=== PATIENT | male | born 1950 | race Caucasian/White ===

== ENCOUNTER 2017-08-25 10:26 | Inpatient (IN) | payer MEDICARE, BC ==
[~2017-08-25 10:26] MED LIST: Bisacodyl 5 MG Tab PO PRN; Cyclobenzaprine 10 MG Tab PO PRN; Ketorolac 15 MG/ML SDV IVPUSH PRN; Lactated Ringers 1,000 ML IV SCH; Lidocaine 1%/Sod Bicarbonate in NS 8.4% 1 ML Syringe IV PRN; Magnesium Hydroxide 400 MG/5 ML Susp 30 ML Cup PO PRN; Morphine 2 MG/ML Syringe IVPUSH PRN; Naloxone 0.4 MG/ML SDV IVPUSH PRN; Ondansetron 4 MG/2 ML SDV IVPUSH PRN; Sennosides 8.6 MG Tab PO PRN; Sodium Chloride 0.9% 10 ML Syringe FLUSH PRN; diphenhydrAMINE 50 MG/ML SDV IVPUSH PRN
[2017-08-25] MEDS ORDERED: ceFAZolin 1 GM Vial ONE ×2 (11:23→11:32)
[2017-08-25] MEDS ORDERED: Iodine/Sodium Iodide 2% Tincture 30 ML Bottle ONE (11:23)
[2017-08-25] MEDS ORDERED: Bupivacaine 0.25% 10 ML SDV ONE (11:23)
[2017-08-25] MEDS ORDERED: Vancomycin 1 GM SDV ONE (11:23)
[2017-08-25] MEDS ORDERED: fentaNYL 100 MCG/2 ML SDV ONE (11:32)
[2017-08-25] MEDS ORDERED: Propofol 200 MG/20 ML SDV ONE ×3 (11:32→13:48)
[2017-08-25] MEDS ORDERED: Midazolam 1 MG/ML 2 ML SDV ONE (11:32)
--- NOTE | 2017-08-25 11:45 | PCM.PREANE ---
Preanesthetic Assessment - Anesthesia/Transfusion/Family Hx Anesthesia History: Prior Anesthesia Without Reaction Family History of Anesthesia Reaction: No Transfusion History: No Prior Transfusion(s) - Review of Systems General: No Symptoms Pulmonary: No Symptoms Cardiovascular: No Symptoms (HTN) Gastrointestinal: No Symptoms Neurological: Other (chronic low back pain) Other: Reports: Diabetes (DM 2, hemoglobin A1C, took acetaminophen 1500 mg this am) - Physical Assessment NPO Status Date: 08/24/17 NPO Status Time: 22:00 Pulse: 77 O2 Sat by Pulse Oximetry: 94 Respiratory Rate: 16 Blood Pressure: 155/100 Vital Signs: Last Vital Signs Temp 36.9 C 08/25/17 10:45 Pulse 77 08/25/17 10:45 Resp 16 08/25/17 10:45 BP 155/100 H 08/25/17 10:45 Pulse Ox 94 L 08/25/17 10:45 Height: 1.8 m Weight: 100.244 kg ASA Class: 2 Mental Status: Alert & Oriented x3 Airway Class: Mallampati = 2 Dentition: Reports: Normal Dentition, Broken Tooth/Teeth (right upper tooth) Thyro-Mental Finger Breadths: 3 Mouth Opening Finger Breadths: 3 ROM/Head Extension: Full Lungs: Clear to Auscultation, Normal Respiratory Effort Cardiovascular: Regular Rate, Regular Rhythm - Lab Values: Laboratory Last Values APTT 27 SECONDS (22-36) 08/14/17 08:15 POC Glucose 147 mg/dL (80-115) H 08/25/17 10:57 MRSA (PCR) Negative 08/06/17 15:39 - Allergies Allergies/Adverse Reactions: Allergies Allergy/AdvReac Type Severity Reaction Status Date / Time No Known Allergies Allergy Verified 08/22/17 09:45 - Blood Blood Available: No Product(s) Available: None - Anesthesia Plan Pre-Op Medication Ordered: None - Acknowledgements Anesthesia Type Planned: Spinal Pt an Appropriate Candidate for the Planned Anesthesia: Yes Alternatives and Risks of Anesthesia Discussed w Pt/Guardian: Yes Pt/Guardian Understands and Agrees with Anesthesia Plan: Yes PreAnesthesia Questionnaire HEENT History: Reports: None Cardiovascular History: Reports: High Cholesterol, Hypertension Respiratory History: Reports: None Gastrointestinal History: Reports: None Genitourinary History: Reports: BPH Other Genitourinary History: Hypertrophy of the prostate Musculoskeletal History: Reports: Gout, Osteoarthritis Neurological History: Reports: None Psychiatric History: Reports: None Endocrine/Metabolic History: Reports: Diabetes, Type II Hematologic History: Reports: None Immunologic History: Reports: None Oncologic (Cancer) History: Reports: None Dermatologic History: Reports: None - Infectious Disease History Infectious Disease History: Reports: None - Past Surgical History Head Surgeries/Procedures: Reports: None HEENT Surgical History: Reports: None Cardiovascular Surgical History: Reports: None Respiratory Surgical History: Reports: None GI Surgical History: Reports: None Male Surgical History: Reports: None Endocrine Surgical History: Reports: None Neurological Surgical History: Reports: None Other Musculoskeletal Surgeries/Procedures:: Right total hip replacement Oncologic Surgical History: Reports: None Dermatological Surgical History: Reports: None - SUBSTANCE USE Smoking Status *Q: Former Smoker Tobacco Use Within Last Twelve Months: No Second Hand Smoke Exposure: No Recreational Drug Use History: No - HOME MEDS Home Medications: Home Meds Allopurinol 100 mg PO DAILY 07/07/15 [History] Brimonidine Tartrate 1 drop EYEBOTH TID 07/07/15 [History] Flaxseed [Flaxseed Oil] 3 tab PO DAILY 07/07/15 [History] Gluc HCl/Csa/Nkechi Hy/Hyalur Ac [Glucosamine Chondroitin] 3 cap PO DAILY [History] Lisinopril 5 mg PO DAILY 07/07/15 [History] Pravastatin [Pravachol] 20 mg PO DAILY 07/07/15 [History] Ubidecarenone [Coq-10] 300 mg PO DAILY 07/07/15 [History] Acetaminophen/oxyCODONE [Percocet 325-5 MG] 1 tab PO QID PRN 08/22/17 [History] Aspirin [Halfprin] 81 mg PO DAILY 08/22/17 [History] Calcium Carbonate 500 mg PO TID 08/22/17 [History] Fish Oil/[place]-3 Fatty Acids [Fish Oil] 1,000 mg PO BID 08/22/17 [History] Ibuprofen [Advil] 200 mg PO BID 08/22/17 [History] sitaGLIPtin Phos/Metformin HCl [Janumet 50-1,000 MG] 1 tab PO BID 08/22/17 [ History] traMADol HCl [Ultram] 50 mg PO QID PRN 08/22/17 [History] - CURRENT (IN HOUSE) MEDS Current Meds: Current Medications Aspirin (Ecotrin) 325 mg PO BID KAREEM Bisacodyl (Dulcolax) 5 mg PO DAILY PRN PRN Reason: Constipation Morphine Sulfate 8 mg/Epinephrine HCl 0.3 mg/Cefuroxime Sodium 750 mg/Ketorolac Tromethamine 30 mg/Sodium Chloride 27.9 ml 0 mg .XX ONETIME ONE Stop: 08/25/17 12:46 Cyclobenzaprine HCl (Flexeril) 10 mg PO TID PRN PRN Reason: Spasms Diphenhydramine HCl (Benadryl) 25 mg IVPUSH Q4H PRN PRN Reason: Nausea Docusate Sodium (Colace) 100 mg PO BID KAREEM Famotidine (Pepcid) 20 mg PO Q12H [facility] Lactated Ringer's (Ringers, Lactated) 1,000 mls @ 125 mls/hr IV ASDIRECTED [facility] Cefazolin Sodium/Dextrose 2 gm (/ Premix) 50 mls @ 100 mls/hr IV Q8H [facility] Stop: 08/26/17 11:59 Ketorolac Tromethamine (Toradol) 15 mg IVPUSH Q6H PRN PRN Reason: Pain Lidocaine/Sodium Bicarbonate (Buffered Lidocaine 1% In Ns 8.4%) 0.25 ml IV ONETIME PRN PRN Reason: Prior to IV Start Stop: 08/25/17 18:00 Magnesium Hydroxide (Milk Of Magnesia) 30 ml PO BID PRN PRN Reason: Constipation Morphine Sulfate (Morphine) 2 mg IVPUSH Q2H PRN PRN Reason: Breakthrough Pain Naloxone HCl (Narcan) 0.1 mg IVPUSH Q5M PRN PRN Reason: Oversedation Ondansetron HCl (Zofran) 4 mg IVPUSH Q6H PRN PRN Reason: Nausea/Vomiting Oxycodone/Acetaminophen (Percocet 325-5 Mg) 1 - 2 tab PO Q4H PRN PRN Reason: Pain Senna (Senna) 8.6 mg PO BID PRN PRN Reason: Constipation Sodium Chloride (Saline Flush) 10 ml FLUSH ASDIRECTED PRN PRN Reason: Keep Vein Open Stop: 08/25/17 23:30 Discontinued Medications Bupivacaine HCl (Sensorcaine-Mpf 0.25%) Confirm Administered Dose 30 ml .ROUTE .STK-MED ONE Stop: 08/25/17 11:24 Cefazolin Sodium (Ancef) Confirm Administered Dose 2 gm .ROUTE .STK-MED ONE Stop: 08/25/17 11:24 Cefazolin Sodium (Ancef) Confirm Administered Dose 2 gm .ROUTE .STK-MED ONE Stop: 08/25/17 11:33 Fentanyl (Sublimaze) Confirm Administered Dose 100 mcg .ROUTE .STK-MED ONE Stop: 08/25/17 11:33 Iodine (Iodine 2% Mild Tincture) Confirm Administered Dose 30 ml .ROUTE .STK- MED ONE Stop: 08/25/17 11:24 Midazolam HCl (Versed 1 Mg/Ml) Confirm Administered Dose 2 mg .ROUTE .STK-MED ONE Stop: 08/25/17 11:33 Propofol (Diprivan 20 Ml) Confirm Administered Dose 600 mg .ROUTE .STK-MED ONE Stop: 08/25/17 11:33 Tranexamic Acid (Cyklokapron) Confirm Administered Dose 1,000 mg .ROUTE .STK- MED ONE Stop: 08/25/17 11:24 Vancomycin HCl (Vancomycin) Confirm Administered Dose 1 gm .ROUTE .STK-MED ONE Stop: 08/25/17 11:24
[2017-08-25] MEDS ORDERED: Morphine PF 1 MG/ML Amp ONE (12:02)
[2017-08-25] MEDS ORDERED: diphenhydrAMINE 50 MG/ML SDV IVPUSH PRN (13:06)
[2017-08-25] MEDS ORDERED: HYDROmorphone 0.5 MG/0.5 ML Syringe IVPUSH PRN (13:06)
[2017-08-25] MEDS ORDERED: Ondansetron 4 MG/2 ML SDV IVPUSH PRN (13:06)
[2017-08-25] MEDS ORDERED: fentaNYL 100 MCG/2 ML SDV IVPUSH PRN (13:06)
[2017-08-25] MEDS ORDERED: Lactated Ringers 1,000 ML ONE ×2 (13:26→14:30)
[2017-08-25] MEDS: Morphine 8 MG, EPINEPHrine 0.3 MG, Cefuroxime 750 MG, Ketorolac 30 MG, Sodium Chloride ... ONE ×10 (13:57→16:39)
--- NOTE | 2017-08-25 14:45 | PCM.POSTAN ---
POST ANESTHESIA ASSESSMENT - MENTAL STATUS Mental Status: Alert, Oriented - VITAL SIGNS Pulse Rate: 68 SaO2: 96 Resp Rate: 14 Blood Pressure: 129/77 Temperature: 36.0 C - RESPIRATORY Respiratory Status: Respiratory Rate WNL, Airway Patent, O2 Saturation Stable, Supplemental Oxygen - CARDIOVASCULAR CV Status: Pulse Rate WNL, Blood Pressure Stable - GASTROINTESTINAL GI Status: No Symptoms - PAIN Pain Score: 0 - POST OP HYDRATION Hydration Status: Adequate & Stable
--- NOTE | 2017-08-25 15:19 | CR ---
Right knee: AP and lateral views of the right knee were obtained. Comparison: No prior knee exam. Knee prosthesis is seen. Components are aligned. Soft tissue air is noted from the surgical procedure. Impression: 1. Satisfactory radiographic appearance of recently placed right knee prosthesis. Diagnostic code #2
[2017-08-25] MEDS: ceFAZolin 2 GM in Premix Bag 1 BAG IV SCH (18:34)
--- NOTE | 2017-08-25 19:18 | PCM.CONS ---
H&P History of Present Illness - General Date of Service: 08/25/17 Admit Problem/Dx: Admission Diagnosis/Problem Admission Diagnosis/Problem Osteoarthritis of knee Source of Information: Patient, Old Records History Limitations: Reports: No Limitations - History of Present Illness Initial Comments - Free Text/Narative: Gabe is a 67-year-old male status post total knee arthroplasty this morning with Dr. Stanton. He is doing well thus far. Minimal complaints of pain. No nausea. Fishman catheter is draining clear yellow urine. He is status post total hip arthroplasty 1 year ago, he did have difficulty with voiding after Fishman catheter was removed at that time. He does have history of BPH. He has no concerns or complaints this evening. Past medical history type 2 diabetes controlled on oral medications. Hypertension, hyperlipidemia, BPH, gout, low back pain, osteoarthritis, status post total hip arthroplasty 1 year ago--did very well with that. Hospitalist service is consulted for postoperative medical management. Patient is full CODE STATUS Right Knee Pain Score (Numeric/FACES): 6 - Related Data Allergies/Adverse Reactions: Allergies Allergy/AdvReac Type Severity Reaction Status Date / Time No Known Allergies Allergy Verified 08/22/17 09:45 Home Medications: Home Meds Allopurinol 100 mg PO DAILY 07/07/15 [History] Brimonidine Tartrate 1 drop EYEBOTH TID 07/07/15 [History] Flaxseed [Flaxseed Oil] 3 tab PO DAILY 07/07/15 [History] Gluc HCl/Csa/Nkechi Hy/Hyalur Ac [Glucosamine Chondroitin] 3 cap PO DAILY [History] Lisinopril 5 mg PO DAILY 07/07/15 [History] Pravastatin [Pravachol] 20 mg PO DAILY 07/07/15 [History] Ubidecarenone [Coq-10] 300 mg PO DAILY 07/07/15 [History] Acetaminophen/oxyCODONE [Percocet 325-5 MG] 1 tab PO QID PRN 08/22/17 [History] Aspirin [Halfprin] 81 mg PO DAILY 08/22/17 [History] Calcium Carbonate 500 mg PO TID 08/22/17 [History] Fish Oil/[place]-3 Fatty Acids [Fish Oil] 1,000 mg PO BID 08/22/17 [History] Ibuprofen [Advil] 200 mg PO BID 08/22/17 [History] sitaGLIPtin Phos/Metformin HCl [Janumet 50-1,000 MG] 1 tab PO BID 08/22/17 [ History] traMADol HCl [Ultram] 50 mg PO QID PRN 08/22/17 [History] Past Medical History HEENT History: Reports: Cataract, Glaucoma, Other (See Below) Other HEENT History: wears glasses, bilateral cataracts Cardiovascular History: Reports: High Cholesterol, Hypertension Respiratory History: Reports: None Gastrointestinal History: Reports: None Genitourinary History: Reports: BPH Other Genitourinary History: Hypertrophy of the prostate Musculoskeletal History: Reports: Gout, Osteoarthritis Neurological History: Reports: None Psychiatric History: Reports: None Endocrine/Metabolic History: Reports: Diabetes, Type II Hematologic History: Reports: None Immunologic History: Reports: None Oncologic (Cancer) History: Reports: None Dermatologic History: Reports: None - Infectious Disease History Infectious Disease History: Reports: Mumps - Past Surgical History Head Surgeries/Procedures: Reports: None HEENT Surgical History: Reports: Cataract Surgery Cardiovascular Surgical History: Reports: None Respiratory Surgical History: Reports: None GI Surgical History: Reports: None Male Surgical History: Reports: None Endocrine Surgical History: Reports: None Neurological Surgical History: Reports: None Other Musculoskeletal Surgeries/Procedures:: Right total hip replacement Oncologic Surgical History: Reports: None Dermatological Surgical History: Reports: None Social & Family History - Family History Oncologic: Reports: Other (See Below) Other Oncologic Family History: stomach - Tobacco Use Smoking Status *Q: Former Smoker Used Tobacco, but Quit: Yes Month Tobacco Last Used: 1981 Second Hand Smoke Exposure: No - Caffeine Use Caffeine Use: Reports: Coffee, Soda - Recreational Drug Use Recreational Drug Use: No Drug Use in Last 12 Months: No H&P Review of Systems - Review of Systems: Review Of Systems: See Below General: Reports: No Symptoms HEENT: Reports: No Symptoms Pulmonary: Reports: No Symptoms Cardiovascular: Reports: No Symptoms Gastrointestinal: Reports: No Symptoms Genitourinary: Reports: No Symptoms, Other (fishman cath draining clear yellow urine) Musculoskeletal: Reports: Leg Pain (Minimal complaints of knee pain this evening ) Psychiatric: Reports: No Symptoms Neurological: Reports: No Symptoms Exam - Exam Exam: See Below - Vital Signs Vital Signs: Last Vital Signs Temp 97.5 F 08/25/17 15:15 Pulse 74 08/25/17 18:02 Resp 16 08/25/17 15:51 BP 152/78 H 08/25/17 18:02 Pulse Ox 97 08/25/17 18:53 Weight: 227 lb 3.2 oz - Exam Quality Assessment: Urinary Catheter, DVT Prophylaxis General: Alert, Oriented, Cooperative HEENT: Conjunctiva Clear, Hearing Intact, Pupils Equal, PERRLA Neck: Supple Lungs: Clear to Auscultation, Normal Respiratory Effort Cardiovascular: Regular Rate, Regular Rhythm GI/Abdominal Exam: Normal Bowel Sounds, Soft, Non-Tender (Male) Exam: Deferred Rectal (Males) Exam: Deferred Extremities: Other Peripheral Pulses: 2+: Dorsalis Pedis (L), Dorsalis Pedis (R) Neurological: Cranial Nerves Intact Neuro Extensive - Mental Status: Alert, Oriented x3, Normal Mood/Affect, Normal Cognition, Memory Intact Psychiatric: Alert, Normal Affect, Normal Mood - Patient Data Lab Results Last 24 hrs: Laboratory Results - last 24 hr 08/25/17 08/25/17 Range/Units 10:57 17:10 POC Glucose 147 H 155 H (80-115) mg/dL Consult PN Assessment/Plan POD#: 0 Procedures: Procedures GAIT TRAINING THERAPY (08/02/15) MR-STAPH DNA AMP PROBE (07/04/15) NEEDLE LOCALIZATION BY XRAY (09/28/14) PT EVALUATION (08/02/15) THERAPEUTIC EXERCISES (09/05/15) (1) S/P total knee arthroplasty SNOMED Code(s): 3999693135322, 3674221291900 Code(s): Z96.659 - PRESENCE OF UNSPECIFIED ARTIFICIAL KNEE JOINT Priority: High Current Visit: Yes Qualifiers: Laterality: right Qualified Code(s): Z96.651 - Presence of right artificial knee joint (2) Osteoarthritis SNOMED Code(s): 256515515 Code(s): M19.90 - UNSPECIFIED OSTEOARTHRITIS, UNSPECIFIED SITE Priority: High Current Visit: Yes Qualifiers: Osteoarthritis location: knee Osteoarthritis type: primary Laterality: right Qualified Code(s): M17.11 - Unilateral primary osteoarthritis, right knee (3) BPH (benign prostatic hyperplasia) SNOMED Code(s): 142784678 Code(s): N40.0 - BENIGN PROSTATIC HYPERPLASIA WITHOUT LOWER URINRY TRACT SYMP Priority: Medium Current Visit: Yes Qualifiers: Lower urinary tract symptom presence: unspecified whether lower urinary tract symptoms present Qualified Code(s): N40.0 - Benign prostatic hyperplasia without lower urinary tract symptoms (4) Hyperlipidemia SNOMED Code(s): 59196294 Code(s): E78.5 - HYPERLIPIDEMIA, UNSPECIFIED Priority: Medium Current Visit: No Qualifiers: Hyperlipidemia type: unspecified Qualified Code(s): E78.5 - Hyperlipidemia , unspecified (5) Diabetes mellitus type 2 in nonobese SNOMED Code(s): 952714627 Code(s): E11.9 - TYPE 2 DIABETES MELLITUS WITHOUT COMPLICATIONS Priority: Medium Current Visit: Yes (6) GERD (gastroesophageal reflux disease) SNOMED Code(s): 278228065 Code(s): K21.9 - GASTRO-ESOPHAGEAL REFLUX DISEASE WITHOUT ESOPHAGITIS Priority: Medium Current Visit: No Qualifiers: Esophagitis presence: esophagitis presence not specified Qualified Code(s) : K21.9 - Gastro-esophageal reflux disease without esophagitis (7) Hypertension SNOMED Code(s): 88386727 Code(s): I10 - ESSENTIAL (PRIMARY) HYPERTENSION Priority: Medium Current Visit: No Qualifiers: Hypertension type: unspecified Qualified Code(s): I10 - Essential (primary ) hypertension Problem List Initiated/Reviewed/Updated: Yes My Orders Last 24 Hours: My Active Orders 08/25/17 19:12 Blood Glucose Check, Bedside [RC] WITHMEALSANDBED 08/25/17 21:00 Tamsulosin [Flomax] 0.4 mg PO BIDPC 08/25/17 22:00 Insulin Aspart [NovoLOG] See Protocol SUBCUT QIDACANDBED 08/26/17 Breakfast [employer] Diet [DIET] Plan: I/P: S/P total right knee arthroplasty, POD # 0, Dr. Sharp - Pain management and DVT prophylax - PT/OT - RT/IS - Hgb, will follow a.m. labs - Vital signs stable currently, we'll continue to follow, monitor oxygen saturations with supplemental O2 if needed for saturations less than 90% Chronic conditions: Continue home meds Hypertension Hyperlipidemia Type 2 diabetes, Accu-Cheks before meals and at bedtime, NovoLog sliding scale if needed, diabetic diet BPH with urinary retention after total hip arthroplasty 1 year ago, add Flomax twice a day Gout Chronic low back pain Other: GI Prophylax CM/SW for DC planning Patient is full Code status. Requesting Provider: Romy Date Consult Requested: 08/25/17 Reason for Consult: Postoperative medical management Patient History Reviewed: Yes Admission H&P Reviewed: Yes Time Spent (in minutes): 40
[2017-08-25] MEDS: Tamsulosin 0.4 MG Cap.ER PO SCH (21:15)
[2017-08-25] MEDS: Famotidine 20 MG Tab PO SCH (21:15)
[2017-08-25] MEDS: Docusate Sodium 100 MG Cap PO SCH (21:15)
[2017-08-25] MEDS: Insulin Aspart 100 Units/ML 3 ML Pen SUBCUT SCH (23:00)
[2017-08-25] MEDS: Acetaminophen/oxyCODONE 325-5 MG Tab PO PRN (23:34)
[2017-08-26] MEDS ORDERED: Temazepam 15 MG Cap PO PRN (01:38)
[2017-08-26] MEDS: Acetaminophen/oxyCODONE 325-5 MG Tab PO PRN ×2 (03:24→14:21)
[2017-08-26] MEDS ORDERED: Scopolamine 1.5 MG Transdermal Patch ONE (08:04)
[2017-08-26] MEDS ORDERED: Aspirin 325 MG Tab.EC PO SCH (09:00)
[2017-08-26] MEDS: Insulin Aspart 100 Units/ML 3 ML Pen SUBCUT SCH ×2 (12:12→12:20)
[2017-08-26] MEDS: ceFAZolin 2 GM in Premix Bag 1 BAG IV SCH ×2 (12:12→12:19)
[2017-08-26] MEDS: Tamsulosin 0.4 MG Cap.ER PO SCH (12:13)
[2017-08-26] MEDS: Docusate Sodium 100 MG Cap PO SCH (12:13)
[2017-08-26] MEDS: Famotidine 20 MG Tab PO SCH (12:14)
--- NOTE | 2017-08-26 12:18 | PN ---
DATE OF SERVICE: 08/26/2017 Consult/Progress Note CHIEF COMPLAINT: Status post right total knee arthroplasty with Dr. Stanton. SUBJECTIVE: Mr. Duran is seen this morning. He does have complaints of right knee pain. He feels that his thigh is firm and very tender. He did not sleep much at all last night as he was restless and having pain. He was medicated for pain, which helps. He is mildly nauseous. He did vomit x1 yesterday afternoon and had Zofran. He denies complaints of shortness of breath, chest pain, palpitations, abdominal or back pain. He is voiding x2 after Wesley catheter removal without difficulty. OBJECTIVE: VITAL SIGNS: Temperature 97.9, pulse 81, and blood pressure 135/75. He is on 2 L nasal cannula at this time. HEENT: Unremarkable. HEART: Regular rate and rhythm. No murmurs, rubs, or gallops. LUNGS: Clear to auscultation. ABDOMEN: Soft, nontender. Bowel sounds present. EXTREMITIES: Right leg is with some amount of firmness to the thigh, there is no ecchymosis noted. It is tender with palpation to the lateral thigh. Edinson wrap is loosened. Dressing is examined; clean, dry, and intact. The knee itself is with minimal amount of swelling, no firmness about the knee or posterior knee. Calf is nontender and without swelling or firmness. Distally, pedal pulses are 2+ and equal bilaterally. He has normal sensation to the toes. He is flexing and extending the ankle without difficulty or pain to the knee. NEURO: Alert and oriented x3. IMPRESSION: 1. Status post right total knee arthroplasty, postop day #1. 2. Mild postoperative nausea. 3. Hypertension, under good control at this time. PLAN: Edinson wrap was loosened slightly. Reviewed with the patient that I do not think there is bleeding into the thigh as he is hemodynamically stable, no dizziness, asymptomatic. I believe this may have been the Edinson wrap was too tight for him and he is having normal postoperative swelling. Scopolamine patch is ordered and will be placed for nausea. He has been up and ambulatory 3 times in the night. Encouraged him to continue to ambulate, continue to do ankle pumps and squeeze the quad muscle while lying in bed. We will see how he does later this morning and plan for discharge today per Orthopedics. Medically, he is stable from a hospitalist standpoint and okay for discharge today. FRANCESCO /[id number]
[2017-08-26 15:48] VITALS: BP 152/62
--- NOTE | 2017-08-26 16:38 | PCM48HPAN ---
Post Anesthesia Note - EVALUATION WITHIN 48HRS OF ANESTHETIC Vital Signs in Normal Range: Yes Patient Participated in Evaluation: Yes Respiratory Function Stable: Yes Airway Patent: Yes Cardiovascular Function Stable: Yes Hydration Status Stable: Yes Pain Control Satisfactory: Yes Nausea and Vomiting Control Satisfactory: Yes Mental Status Recovered: Yes
--- NOTE | 2017-08-27 10:47 | PCM.SURGPN ---
- General Info Date of Service: 08/26/17 POD#: 1 Functional Status: Reports: Pain Controlled, Tolerating Diet, Ambulating, Urinating, Incentive Spirometry - Review of Systems Musculoskeletal: Reports: Other (The pt has met inpatient therapy goals.) - Patient Data Vitals - Most Recent: Last Vital Signs Temp 98.4 F 08/26/17 12:20 Pulse 92 08/26/17 12:20 Resp 17 08/26/17 12:20 BP 152/62 H 08/26/17 12:20 Pulse Ox 92 L 08/26/17 12:20 Weight - Most Recent: 227 lb 3.2 oz Lab Results Last 24 Hrs: Laboratory Results - last 24 hr 08/26/17 08/26/17 08/26/17 Range/Units 05:13 05:13 05:17 WBC 9.10 H (4.23-9.07) K/mm3 RBC 4.10 L (4.63-6.08) M/mm3 Hgb 11.8 L (13.7-17.5) gm/L Hct 35.3 L (40.1-51.0) % MCV 86.1 (79.0-92.2) fl MCH 28.8 (25.7-32.2) pg MCHC 33.4 (32.2-35.5) g/dl RDW Std Deviation 42.6 (35.1-43.9) fL Plt Count 179 (163-337) K/mm3 MPV 11.7 (9.4-12.3) fl Neut % (Auto) 75.8 H (34.0-67.9) % Lymph % (Auto) 10.4 L (21.8-53.1) % [place] % (Auto) 11.9 (5.3-12.2) % Eos % (Auto) 1.3 (0.8-7.0) Baso % (Auto) 0.3 (0.1-1.2) % Neut # (Auto) 6.89 H (1.78-5.38) K/mm3 Lymph # (Auto) 0.95 L (1.32-3.57) K/mm3 [place] # (Auto) 1.08 H (0.30-0.82) K/mm3 Eos # (Auto) 0.12 (0.04-0.54) K/mm3 Baso # (Auto) 0.03 (0.01-0.08) K/mm3 Sodium 136 (136-145) mEq/L Potassium 4.4 (3.5-5.1) mEq/L Chloride 98 (98-107) mEq/L Carbon Dioxide 30 (21-32) mEq/L Anion Gap 12.4 (5-15) BUN 17 (7-18) mg/dL Creatinine 0.8 (0.7-1.3) mg/dL Est Cr Clr Drug Dosing 98.05 mL/min Estimated GFR (MDRD) > 60 (>60) mL/min BUN/Creatinine Ratio 21.3 H (14-18) Glucose 223 H (80-115) mg/dL POC Glucose 259 H (80-115) mg/dL Calcium 8.6 (8.5-10.1) mg/dL Total Bilirubin 0.7 (0.2-1.0) mg/dL AST 18 (15-37) U/L ALT 33 (16-63) U/L Alkaline Phosphatase 44 L (46-116) U/L Total Protein 6.7 (6.4-8.2) g/dl Albumin 3.4 (3.4-5.0) g/dl Globulin 3.3 gm/dL Albumin/Globulin Ratio 1.0 (1-2) 08/26/17 Range/Units 11:34 WBC (4.23-9.07) K/mm3 RBC (4.63-6.08) M/mm3 Hgb (13.7-17.5) gm/L Hct (40.1-51.0) % MCV (79.0-92.2) fl MCH (25.7-32.2) pg MCHC (32.2-35.5) g/dl RDW Std Deviation (35.1-43.9) fL Plt Count (163-337) K/mm3 MPV (9.4-12.3) fl Neut % (Auto) (34.0-67.9) % Lymph % (Auto) (21.8-53.1) % [place] % (Auto) (5.3-12.2) % Eos % (Auto) (0.8-7.0) Baso % (Auto) (0.1-1.2) % Neut # (Auto) (1.78-5.38) K/mm3 Lymph # (Auto) (1.32-3.57) K/mm3 [place] # (Auto) (0.30-0.82) K/mm3 Eos # (Auto) (0.04-0.54) K/mm3 Baso # (Auto) (0.01-0.08) K/mm3 Sodium (136-145) mEq/L Potassium (3.5-5.1) mEq/L Chloride (98-107) mEq/L Carbon Dioxide (21-32) mEq/L Anion Gap (5-15) BUN (7-18) mg/dL Creatinine (0.7-1.3) mg/dL Est Cr Clr Drug Dosing mL/min Estimated GFR (MDRD) (>60) mL/min BUN/Creatinine Ratio (14-18) Glucose (80-115) mg/dL POC Glucose 308 H (80-115) mg/dL Calcium (8.5-10.1) mg/dL Total Bilirubin (0.2-1.0) mg/dL AST (15-37) U/L ALT (16-63) U/L Alkaline Phosphatase (46-116) U/L Total Protein (6.4-8.2) g/dl Albumin (3.4-5.0) g/dl Globulin gm/dL Albumin/Globulin Ratio (1-2) Med Orders - Current: Current Medications Discontinued Medications Aspirin (Ecotrin) 325 mg PO BID [facility] Last Admin: 08/26/17 12:13 Dose: Not Given Bisacodyl (Dulcolax) 5 mg PO DAILY PRN PRN Reason: Constipation Bupivacaine HCl (Sensorcaine-Mpf 0.25%) Confirm Administered Dose 30 ml .ROUTE .STK-MED ONE Stop: 08/25/17 11:24 Last Admin: 08/25/17 13:58 Dose: 30 ml Cefazolin Sodium (Ancef) Confirm Administered Dose 2 gm .ROUTE .STK-MED ONE Stop: 08/25/17 11:24 Last Admin: 08/25/17 13:53 Dose: 2 gm Cefazolin Sodium (Ancef) Confirm Administered Dose 2 gm .ROUTE .STK-MED ONE Stop: 08/25/17 11:33 Morphine Sulfate 8 mg/Epinephrine HCl 0.3 mg/Cefuroxime Sodium 750 mg/Ketorolac Tromethamine 30 mg/Sodium Chloride 27.9 ml 0 mg .XX ONETIME ONE Stop: 08/25/17 12:46 Last Admin: 08/25/17 16:39 Dose: Not Given Cyclobenzaprine HCl (Flexeril) 10 mg PO TID PRN PRN Reason: Spasms Last Admin: 08/26/17 03:25 Dose: 10 mg Diphenhydramine HCl (Benadryl) 25 mg IVPUSH Q4H PRN PRN Reason: Nausea Last Admin: 08/25/17 19:35 Dose: 25 mg Diphenhydramine HCl (Benadryl) 25 mg IVPUSH Q6H PRN PRN Reason: itching Stop: 08/25/17 15:30 Docusate Sodium (Colace) 100 mg PO BID [facility] Last Admin: 08/26/17 12:13 Dose: Not Given Famotidine (Pepcid) 20 mg PO Q12H [facility] Last Admin: 08/26/17 12:14 Dose: Not Given Fentanyl (Sublimaze) Confirm Administered Dose 100 mcg .ROUTE .STK-MED ONE Stop: 08/25/17 11:33 Fentanyl (Sublimaze) 50 mcg IVPUSH Q5M PRN PRN Reason: pain Stop: 08/25/17 15:30 Hydromorphone HCl (Dilaudid) 0.5 mg IVPUSH Q15M PRN PRN Reason: Pain (severe 7-10) Stop: 08/25/17 15:30 Lactated Ringer's (Ringers, Lactated) 1,000 mls @ 125 mls/hr IV ASDIRECTED [facility] Last Admin: 08/25/17 11:05 Dose: 125 mls/hr Cefazolin Sodium/Dextrose 2 gm (/ Premix) 50 mls @ 100 mls/hr IV Q8H [facility] Stop: 08/26/17 11:59 Last Admin: 08/26/17 12:19 Dose: 100 mls/hr Lactated Ringer's (Ringers, Lactated) Confirm Administered Dose 1,000 mls @ as directed .ROUTE .STK-MED ONE Stop: 08/25/17 13:27 Lactated Ringer's (Ringers, Lactated) Confirm Administered Dose 1,000 mls @ as directed .ROUTE .STK-MED ONE Stop: 08/25/17 14:31 Insulin Aspart (Novolog) 0 unit SUBCUT QIDACANDBED [facility] PRN Reason: Protocol Last Admin: 08/26/17 12:20 Dose: 4 units Iodine (Iodine 2% Mild Tincture) Confirm Administered Dose 30 ml .ROUTE .STK- MED ONE Stop: 08/25/17 11:24 Last Admin: 08/25/17 13:50 Dose: 18 ml Ketorolac Tromethamine (Toradol) 15 mg IVPUSH Q6H PRN PRN Reason: Pain Last Admin: 08/25/17 18:24 Dose: 15 mg Lidocaine/Sodium Bicarbonate (Buffered Lidocaine 1% In Ns 8.4%) 0.25 ml IV ONETIME PRN PRN Reason: Prior to IV Start Stop: 08/25/17 18:00 Last Admin: 08/25/17 11:05 Dose: 0.25 ml Magnesium Hydroxide (Milk Of Magnesia) 30 ml PO BID PRN PRN Reason: Constipation Midazolam HCl (Versed 1 Mg/Ml) Confirm Administered Dose 2 mg .ROUTE .STK-MED ONE Stop: 08/25/17 11:33 Morphine Sulfate (Morphine) 2 mg IVPUSH Q2H PRN PRN Reason: Breakthrough Pain Morphine Sulfate (Duramorph Pf) Confirm Administered Dose 1 mg .ROUTE .STK-MED ONE Stop: 08/25/17 12:03 Naloxone HCl (Narcan) 0.1 mg IVPUSH Q5M PRN PRN Reason: Oversedation Ondansetron HCl (Zofran) 4 mg IVPUSH Q6H PRN PRN Reason: Nausea/Vomiting Last Admin: 08/25/17 17:39 Dose: 4 mg Ondansetron HCl (Zofran) 4 mg IVPUSH ONETIME PRN PRN Reason: Nausea/Vomiting Stop: 08/25/17 15:30 Oxycodone/Acetaminophen (Percocet 325-5 Mg) 1 - 2 tab PO Q4H PRN PRN Reason: Pain Last Admin: 08/26/17 14:21 Dose: 2 tab Propofol (Diprivan 20 Ml) Confirm Administered Dose 600 mg .ROUTE .STK-MED ONE Stop: 08/25/17 11:33 Propofol (Diprivan 20 Ml) Confirm Administered Dose 200 mg .ROUTE .STK-MED ONE Stop: 08/25/17 13:49 Propofol (Diprivan 20 Ml) Confirm Administered Dose 200 mg .ROUTE .STK-MED ONE Stop: 08/25/17 13:49 Scopolamine (Transderm-Scop) Confirm Administered Dose 1.5 mg .ROUTE .STK-MED ONE Stop: 08/26/17 08:05 Last Admin: 08/26/17 13:39 Dose: Not Given Senna (Senna) 8.6 mg PO BID PRN PRN Reason: Constipation Sodium Chloride (Saline Flush) 10 ml FLUSH ASDIRECTED PRN PRN Reason: Keep Vein Open Stop: 08/25/17 23:30 Tamsulosin HCl (Flomax) 0.4 mg PO BIDPC [facility] Last Admin: 08/26/17 12:13 Dose: Not Given Temazepam (Restoril) 15 mg PO BEDTIME PRN PRN Reason: Sleep Last Admin: 08/26/17 01:44 Dose: 15 mg Tranexamic Acid (Cyklokapron) Confirm Administered Dose 1,000 mg .ROUTE .STK- MED ONE Stop: 08/25/17 11:24 Last Admin: 08/25/17 13:59 Dose: 1,000 mg Vancomycin HCl (Vancomycin) Confirm Administered Dose 1 gm .ROUTE .STK-MED ONE Stop: 08/25/17 11:24 Last Admin: 08/25/17 13:59 Dose: 1 gm - Exam Wound/Incisions: Dressing Dry and Intact General: Alert, Cooperative, No Acute Distress Lungs: Normal Respiratory Effort Extremities: Other (NVS intact for BLE. Julio's negative. ) - Problem List Review Problem List Initiated/Reviewed/Updated: Yes - My Orders Last 24 Hours: Active Orders 24 hr Category Date Time Status Ready for Discharge [RC] PER UNIT ROUTINE Care 08/26/17 12:55 Active - Assessment Assessment (Free Text/Narrative):: POD#1 - right TKA - Plan Plan (Free Text/Narrative):: 1. Discharge to home today. 2. Aspirin 325mg PO BID, TEDs, frequent mobility. 3. Hgb 11.8. 4. Further orders per Hospitalist service. The pt's case was discussed with Dr. Stanton today.
--- NOTE | 2017-08-28 06:41 | PCM.DCSUM1 ---
Discharge Summary - Hospital Course Brief History: Gabe is a 67 yo male who underwent right TKA with Dr. Stanton on 08-25-17. The procedure was completed under spinal anesthesia with MAC. The pt tolerated the procedure well and was admitted to the Medical-Surgical Unit. The pt received Ancef tao-operatively. He participated in P.T. and O.T. and progressed well. He was allowed to WBAT and used a FWW for mobility. The pt's surgical wound was dressed with a Mepilex dressing and remained clean and dry. On POD#1, the pt was started on 325mg ASA BID for VTE prophylaxis. The pt used TEDs and SCDs also. On POD#1, the pt's hemoglobin was 11.8. Medial management was provided by the Hospitalist service and the pt's hospital course was uneventful. On POD#2, the pt was deemed appropriate for discharge to home with his family. - Discharge Data Discharge Date: 08/26/17 Discharge Disposition: Home, Self-Care 01 Condition: Good - Patient Summary/Data Consults: Consultations 08/25/17 06:55 OT Evaluation and Treatment [CONS] Routine PT Evaluation and Treatment [CONS] Routine 08/25/17 06:56 Consult to Physician [CONS] Routine - Patient Instructions Diet: Usual Diet as Tolerated Activity: Apply Ice, As Tolerated, Elevate Extremity, Full Weight Bearing Driving: Do Not Drive Showering/Bathing: May Shower Wound/Incision Care: Keep Operative Site/Wound Site Clean and Dry, Do NOT Change Dressing Notify Provider of: Fever, Increased Pain, Swelling and Redness, Drainage, Nausea and/or Vomiting Other/Special Instructions: Please get up and moving around every hour while awake. This helps to prevent blood clots. Please take 325mg aspirin twice daily - this also helps to prevent blood clots. The medication is being used for blood clot prevention and not for pain control, so please use the medication twice daily as directed. Please wear the TRINA hose during the day and you may remove them at night. Please schedule for P.T. Complete the P.T. exercises and stretches that were instructed in the Hospital. Please use the pain medication and muscle relaxant as needed. The medication may cause drowsiness and/or constipation. You could use a stool softener like docusate sodium or Colace 100mg twice daily and/or a laxative like Miralax daily for constipation. Contact your primary care provider for further instructions if you are constipated. Please schedule an appointment with your primary care provider for 'routine post-op care'. Use the incentive spirometer often. Please place ice to the knee often. Please elevate the limb to decrease swelling. Keep the Mepilex dressing in place until follow-up. Please call [phone] with questions or concerns. - Discharge Plan Prescriptions/Med Rec: Acetaminophen/oxyCODONE [Percocet 325-5 MG] 1 - 2 tab PO Q4H PRN #60 tablet PRN Reason: Pain Aspirin [Ecotrin] 325 mg PO BID #70 tab.ec Cyclobenzaprine [Flexeril] 10 mg PO TID PRN #40 tablet PRN Reason: Spasms Home Medications: Home Meds Allopurinol 100 mg PO DAILY 07/07/15 [History] Brimonidine Tartrate 1 drop EYEBOTH TID 07/07/15 [History] Flaxseed [Flaxseed Oil] 3 tab PO DAILY 07/07/15 [History] Gluc HCl/Csa/Nkechi Hy/Hyalur Ac [Glucosamine Chondroitin] 3 cap PO DAILY [History] Lisinopril 5 mg PO DAILY 07/07/15 [History] Pravastatin [Pravachol] 20 mg PO DAILY 07/07/15 [History] Ubidecarenone [Coq-10] 300 mg PO DAILY 07/07/15 [History] Calcium Carbonate 500 mg PO TID 08/22/17 [History] Fish Oil/[place]-3 Fatty Acids [Fish Oil 1,000 MG] 1,000 mg PO BID 08/22/17 [ History] sitaGLIPtin Phos/Metformin HCl [Janumet 50-1,000 MG] 1 tab PO BID 08/22/17 [ History] traMADol HCl [Ultram] 50 mg PO QID PRN 08/22/17 [History] Acetaminophen/oxyCODONE [Percocet 325-5 MG] 1 - 2 tab PO Q4H PRN #60 tablet [Rx] Aspirin [Ecotrin] 325 mg PO BID #70 tab.ec 08/26/17 [Rx] Cyclobenzaprine [Flexeril] 10 mg PO TID PRN #40 tablet 08/26/17 [Rx] Docusate Sodium [Colace] 100 mg PO BID cap 08/26/17 [Rx] Famotidine [Pepcid] 20 mg PO Q12H tablet 08/26/17 [Rx] Patient Handouts: Total Knee Replacement, Care After, Total Knee Replacement Referrals: Marjorie Manning PA-C [Physician Programming Intern] - (1. Follow-up with Marjorie Manning PA-C on September 03, 2017 at 1:45 pm. 2. Follow-up with Marjorie Manning PA-C on September 09, 2017 at 9:15 am.) - Patient Data Vitals - Most Recent: Last Vital Signs Temp 98.4 F 08/26/17 12:20 Pulse 92 08/26/17 12:20 Resp 17 08/26/17 12:20 BP 152/62 H 08/26/17 12:20 Pulse Ox 92 L 08/26/17 12:20 Weight - Most Recent: 227 lb 3.2 oz Med Orders - Current: Current Medications Discontinued Medications Aspirin (Ecotrin) 325 mg PO BID [facility] Last Admin: 08/26/17 12:13 Dose: Not Given Bisacodyl (Dulcolax) 5 mg PO DAILY PRN PRN Reason: Constipation Bupivacaine HCl (Sensorcaine-Mpf 0.25%) Confirm Administered Dose 30 ml .ROUTE .STK-MED ONE Stop: 08/25/17 11:24 Last Admin: 08/25/17 13:58 Dose: 30 ml Cefazolin Sodium (Ancef) Confirm Administered Dose 2 gm .ROUTE .STK-MED ONE Stop: 08/25/17 11:24 Last Admin: 08/25/17 13:53 Dose: 2 gm Cefazolin Sodium (Ancef) Confirm Administered Dose 2 gm .ROUTE .STK-MED ONE Stop: 08/25/17 11:33 Morphine Sulfate 8 mg/Epinephrine HCl 0.3 mg/Cefuroxime Sodium 750 mg/Ketorolac Tromethamine 30 mg/Sodium Chloride 27.9 ml 0 mg .XX ONETIME ONE Stop: 08/25/17 12:46 Last Admin: 08/25/17 16:39 Dose: Not Given Cyclobenzaprine HCl (Flexeril) 10 mg PO TID PRN PRN Reason: Spasms Last Admin: 08/26/17 03:25 Dose: 10 mg Diphenhydramine HCl (Benadryl) 25 mg IVPUSH Q4H PRN PRN Reason: Nausea Last Admin: 08/25/17 19:35 Dose: 25 mg Diphenhydramine HCl (Benadryl) 25 mg IVPUSH Q6H PRN PRN Reason: itching Stop: 08/25/17 15:30 Docusate Sodium (Colace) 100 mg PO BID [facility] Last Admin: 08/26/17 12:13 Dose: Not Given Famotidine (Pepcid) 20 mg PO Q12H [facility] Last Admin: 08/26/17 12:14 Dose: Not Given Fentanyl (Sublimaze) Confirm Administered Dose 100 mcg .ROUTE .STK-MED ONE Stop: 08/25/17 11:33 Fentanyl (Sublimaze) 50 mcg IVPUSH Q5M PRN PRN Reason: pain Stop: 08/25/17 15:30 Hydromorphone HCl (Dilaudid) 0.5 mg IVPUSH Q15M PRN PRN Reason: Pain (severe 7-10) Stop: 08/25/17 15:30 Lactated Ringer's (Ringers, Lactated) 1,000 mls @ 125 mls/hr IV ASDIRECTED [facility] Last Admin: 08/25/17 11:05 Dose: 125 mls/hr Cefazolin Sodium/Dextrose 2 gm (/ Premix) 50 mls @ 100 mls/hr IV Q8H [facility] Stop: 08/26/17 11:59 Last Admin: 08/26/17 12:19 Dose: 100 mls/hr Lactated Ringer's (Ringers, Lactated) Confirm Administered Dose 1,000 mls @ as directed .ROUTE .STK-MED ONE Stop: 08/25/17 13:27 Lactated Ringer's (Ringers, Lactated) Confirm Administered Dose 1,000 mls @ as directed .ROUTE .STK-MED ONE Stop: 08/25/17 14:31 Insulin Aspart (Novolog) 0 unit SUBCUT QIDACANDBED [facility] PRN Reason: Protocol Last Admin: 08/26/17 12:20 Dose: 4 units Iodine (Iodine 2% Mild Tincture) Confirm Administered Dose 30 ml .ROUTE .STK- MED ONE Stop: 08/25/17 11:24 Last Admin: 08/25/17 13:50 Dose: 18 ml Ketorolac Tromethamine (Toradol) 15 mg IVPUSH Q6H PRN PRN Reason: Pain Last Admin: 08/25/17 18:24 Dose: 15 mg Lidocaine/Sodium Bicarbonate (Buffered Lidocaine 1% In Ns 8.4%) 0.25 ml IV ONETIME PRN PRN Reason: Prior to IV Start Stop: 08/25/17 18:00 Last Admin: 08/25/17 11:05 Dose: 0.25 ml Magnesium Hydroxide (Milk Of Magnesia) 30 ml PO BID PRN PRN Reason: Constipation Midazolam HCl (Versed 1 Mg/Ml) Confirm Administered Dose 2 mg .ROUTE .STK-MED ONE Stop: 08/25/17 11:33 Morphine Sulfate (Morphine) 2 mg IVPUSH Q2H PRN PRN Reason: Breakthrough Pain Morphine Sulfate (Duramorph Pf) Confirm Administered Dose 1 mg .ROUTE .STK-MED ONE Stop: 08/25/17 12:03 Naloxone HCl (Narcan) 0.1 mg IVPUSH Q5M PRN PRN Reason: Oversedation Ondansetron HCl (Zofran) 4 mg IVPUSH Q6H PRN PRN Reason: Nausea/Vomiting Last Admin: 08/25/17 17:39 Dose: 4 mg Ondansetron HCl (Zofran) 4 mg IVPUSH ONETIME PRN PRN Reason: Nausea/Vomiting Stop: 08/25/17 15:30 Oxycodone/Acetaminophen (Percocet 325-5 Mg) 1 - 2 tab PO Q4H PRN PRN Reason: Pain Last Admin: 08/26/17 14:21 Dose: 2 tab Propofol (Diprivan 20 Ml) Confirm Administered Dose 600 mg .ROUTE .STK-MED ONE Stop: 08/25/17 11:33 Propofol (Diprivan 20 Ml) Confirm Administered Dose 200 mg .ROUTE .STK-MED ONE Stop: 08/25/17 13:49 Propofol (Diprivan 20 Ml) Confirm Administered Dose 200 mg .ROUTE .STK-MED ONE Stop: 08/25/17 13:49 Scopolamine (Transderm-Scop) Confirm Administered Dose 1.5 mg .ROUTE .STK-MED ONE Stop: 08/26/17 08:05 Last Admin: 08/26/17 13:39 Dose: Not Given Senna (Senna) 8.6 mg PO BID PRN PRN Reason: Constipation Sodium Chloride (Saline Flush) 10 ml FLUSH ASDIRECTED PRN PRN Reason: Keep Vein Open Stop: 08/25/17 23:30 Tamsulosin HCl (Flomax) 0.4 mg PO BIDPC [facility] Last Admin: 08/26/17 12:13 Dose: Not Given Temazepam (Restoril) 15 mg PO BEDTIME PRN PRN Reason: Sleep Last Admin: 08/26/17 01:44 Dose: 15 mg Tranexamic Acid (Cyklokapron) Confirm Administered Dose 1,000 mg .ROUTE .STK- MED ONE Stop: 08/25/17 11:24 Last Admin: 08/25/17 13:59 Dose: 1,000 mg Vancomycin HCl (Vancomycin) Confirm Administered Dose 1 gm .ROUTE .STK-MED ONE Stop: 08/25/17 11:24 Last Admin: 08/25/17 13:59 Dose: 1 gm *Q Meaningful Use (DIS) - VTE *Q VTE Criteria *Q: - Stroke *Q Stroke Criteria *Q: - AMI *Q AMI Criteria *Q:
--- NOTE | 2017-08-28 11:51 | PCM.OPNOTE ---
- General Post-Op/Procedure Note Date of Surgery/Procedure: 08/25/17 Operative Procedure(s): right total knee arthroplasty Pre Op Diagnosis: right knee osteoarthrosis Post-Op Diagnosis: Same Anesthesia Technique: Local, MAC, Spinal Primary Surgeon: Jose L Stanton Anesthesia Provider: Leti Wallace Manager Nc: Marjorie Manning Manager Nc: Marina Murphy EBL in mLs: 300 Complications: None Condition: Good
--- NOTE | 2017-08-28 13:37 | OR ---
DATE OF OPERATION: 08/25/2017 SURGEON: Jose L Stanton MD OPERATION PERFORMED: Right total knee arthroplasty. PREOPERATIVE DIAGNOSIS: Right knee osteoarthrosis. POSTOPERATIVE DIAGNOSIS: Right knee osteoarthrosis. ANESTHESIA: Local MAC with spinal. ANESTHESIA PROVIDER: Dr. Leit Wallace. ASIAN STUDIES PROFESSOR: Marjorie Manning PA-C and Marina Murphy LPN. ESTIMATED BLOOD LOSS: 300 mL COMPLICATIONS: None. CONDITION: Stable. IMPLANTS: 1. [place] size 7 PS press-fit femur. 2. [place] size 6 press-fit tibial base plate. 3. [place] size 6, 9 mm PS X3 polyethylene. 4. [place] size 35 x 10 mm press-fit asymmetric patella. DESCRIPTION OF PROCEDURE: The patient was identified in the preop holding area. Proper site was marked and identified by the surgeon. The patient was taken back to the operating theater. After adequate anesthesia, the patient's right lower extremity had a nonsterile tourniquet applied and it was then sterilely prepped and draped in the usual sterile fashion. OR timeout was performed. The patient received 2 g IV Ancef. At this time, right lower extremity was exsanguinated. Tourniquet was insufflated to 300 mmHg. Standard medial parapatellar incision was made. Medial parapatellar arthrotomy was created. Deep fibers of the MCL were raised and anterior fat pad was resected. At this time, attention was turned to the patella. Patella measured 25, it was resected to a 15 for the 35 x 10 patella. Drill holes were then drilled and found to be in adequate position. The drill was then drilled in the distal femur and the intramedullary distal femoral cutting guide was then placed. 8 mm was resected off the distal femur and was found to be an adequate resection. Sizing guide was placed. It was found to be a size 7 PS press-fit femur that was shown on the implant record at the beginning of this dictation. The drill holes were drilled for the epicondylar axis using [place] line and epicondyles as reference. At this time, the 4-in - 1 cutting block was placed. An anterior posterior and anterior and posterior chamfer cuts were then completed. The correct size box cut was then placed and the box cut was completed and found to be an adequate resection. Attention was turned to the tibia. The posterior medial lateral retractors were placed. The extramedullary tibial guide was placed. It was placed in the old footprint of the ACL. It was aligned with the center of the ankle and 0 degrees of slope, 9 mm was then resected off the unaffected lateral side. There was found to be an acceptable reduction. At this time, posterior osteophytes were removed along with medial and lateral meniscus. A trial implant was placed with a correct sized tibia that was mentioned at the beginning of the dictation. A size 6, 9 mm PS X3 polyethylene was then placed. The patient's knee was brought through range of motion. The patella was tracking centrally and was stable to varus and valgus stress. Alignment was found to be roughly at 0 degrees. The tibia was stamped and drilled in proper rotation. The universal tibial base plate was impacted into place. Next, the size 7 PS press-fit femur was impacted into place and the size 6, 9 mm PS X3 polyethylene was placed. The patient's knee was brought into full extension. The patella was then press-fit in place at this time. Tourniquet was deflated. One liter dilute Betadine solution was irrigated through the knee along with 3 L of pulse lavage irrigation with Ancef. Periarticular injection was then completed. The patient's knee was brought through a range of motion. Knee was found to be stable to varus valgus stress, the patella was tracking centrally with full range of motion. At this time, a #2 barbed suture was used for closure of the medial parapatellar arthrotomy. Topical tranexamic acid was placed. 2-0 Vicryl was used subcutaneously, a running 3-0 Monocryl was used subcuticularly. The patient tolerated the procedure well and was sent to the PACU in stable condition. MMODAL /[id number] DAPHNE
== END 2017-08-26 15:17 | disposition home or self-care (01) | DRG 470 ==
LOC: JD.MS 10:27
PROVIDERS: ADMIT Orthopaedic Surgery; ATTEND Orthopaedic Surgery
PROC: 0SRC0J9 Replacement of Right Knee Joint with Synthetic Substitute, Cemented, Open Approach (ICD-10-PCS; principal; 2017-08-25)
DX: M17.11 Unilateral primary osteoarthritis, right knee (principal); I10 Essential (primary) hypertension; E11.9 Type 2 diabetes mellitus without complications; E78.2 Mixed hyperlipidemia; M10.9 Gout, unspecified; N40.1 Benign prostatic hyperplasia with lower urinary tract symptoms; Z96.641 Presence of right artificial hip joint; Z87.891 Personal history of nicotine dependence; Z79.84 Long term (current) use of oral hypoglycemic drugs; Z79.82 Long term (current) use of aspirin; Z79.899 Other long term (current) drug therapy; H40.9 Unspecified glaucoma; E78.00 Pure hypercholesterolemia, unspecified
CPT/HCPCS: 01402; 36415; 73560-26-RT; 73560-RT; 80053; 82962; 85025; 85730; 87641; 94762; 97110-GP; 97116-GP; 97161-GP; 97165-GO; 97530-GP; 97535-GO; A9270-GY; C1776; J0171; J0690; J0697; J1200; J1815-GY; J1885; J2250; J2270; J2274; J2405; J2704; J3010; J3370; J7120

== ENCOUNTER 2019-04-29 12:54 | Emergency (ER) | payer MEDICARE, BC ==
[2019-04-29 13:10] VITALS: BP 163/97
[2019-04-29] MEDS ORDERED: Fluorescein 0.6 MG Ophth Strip EYELF ONE (14:33)
--- NOTE | 2019-04-29 14:55 | EDM.PDOC ---
ED HPI GENERAL MEDICAL PROBLEM - General Chief Complaint: Eye Problems Stated Complaint: FB IN EYE Time Seen by Provider: 04/29/19 14:08 Source of Information: Reports: Patient History Limitations: Reports: No Limitations - History of Present Illness INITIAL COMMENTS - FREE TEXT/NARRATIVE: The patient presents with left eye pain. 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 He has some pain and blurry vision. He cannot see anything in his eye. Onset: Sudden Duration: Hour(s): Location: Reports: Other (Left eye) Quality: Reports: Sharp Severity: Moderate Improves with: Reports: None Worsens with: Reports: None Associated Symptoms: Reports: No Other Symptoms Left Eye Pain Score (Numeric/FACES): 7 - Related Data Allergies Allergy/AdvReac Type Severity Reaction Status Date / Time No Known Allergies Allergy Verified 04/29/19 13:10 Home Meds: Home Meds Allopurinol 100 mg PO DAILY 07/07/15 [History] Brimonidine Tartrate 1 drop EYEBOTH TID 07/07/15 [History] Flaxseed [Flaxseed Oil] 3 tab PO DAILY 07/07/15 [History] Gluc HCl/Csa/Nkechi Hy/Hyalur Ac [Glucosamine Chondroitin] 3 cap PO DAILY [History] Lisinopril 5 mg PO DAILY 07/07/15 [History] Pravastatin [Pravachol] 20 mg PO DAILY 07/07/15 [History] Ubidecarenone [Coq-10] 300 mg PO DAILY 07/07/15 [History] Calcium Carbonate 500 mg PO TID 08/22/17 [History] Fish Oil/[place]-3 Fatty Acids [Fish Oil 1,000 MG] 1,000 mg PO BID 08/22/17 [ History] sitaGLIPtin Phos/Metformin HCl [Janumet 50-1,000 MG] 1 tab PO BID 08/22/17 [ History] traMADol HCl [Ultram] 50 mg PO QID PRN 08/22/17 [History] Acetaminophen/oxyCODONE [Percocet 325-5 MG] 1 - 2 tab PO Q4H PRN #60 tablet [Rx] Aspirin [Ecotrin] 325 mg PO BID #70 tab.ec 08/26/17 [Rx] Cyclobenzaprine [Flexeril] 10 mg PO TID PRN #40 tablet 08/26/17 [Rx] Docusate Sodium [Colace] 100 mg PO BID cap 08/26/17 [Rx] Famotidine [Pepcid] 20 mg PO Q12H tablet 08/26/17 [Rx] Ciprofloxacin [Ciprofloxacin 0.3% Ophth Soln] 1 drop EYERT Q4HR #1 bottle [Rx] traMADol [Ultram] 50 - 100 mg PO Q6H PRN #20 tab 04/29/19 [Rx] Past Medical History HEENT History: Reports: Cataract, Glaucoma, Other (See Below) Other HEENT History: wears glasses, bilateral cataracts Cardiovascular History: Reports: High Cholesterol, Hypertension Respiratory History: Reports: None Gastrointestinal History: Reports: None Genitourinary History: Reports: BPH Other Genitourinary History: Hypertrophy of the prostate Musculoskeletal History: Reports: Gout, Osteoarthritis Neurological History: Reports: None Psychiatric History: Reports: None Endocrine/Metabolic History: Reports: Diabetes, Type II Hematologic History: Reports: None Immunologic History: Reports: None Oncologic (Cancer) History: Reports: None Dermatologic History: Reports: None - Infectious Disease History Infectious Disease History: Reports: Mumps - Past Surgical History Head Surgeries/Procedures: Reports: None HEENT Surgical History: Reports: Cataract Surgery Cardiovascular Surgical History: Reports: None Respiratory Surgical History: Reports: None GI Surgical History: Reports: None Male Surgical History: Reports: None Endocrine Surgical History: Reports: None Neurological Surgical History: Reports: None Other Musculoskeletal Surgeries/Procedures:: Right total hip replacement Oncologic Surgical History: Reports: None Dermatological Surgical History: Reports: None Social & Family History - Family History Oncologic: Reports: Other (See Below) Other Oncologic Family History: stomach - Tobacco Use Smoking Status *Q: Never Smoker - Caffeine Use Caffeine Use: Reports: Coffee, Soda - Recreational Drug Use Recreational Drug Use: No ED ROS GENERAL - Review of Systems Review Of Systems: See Below Constitutional: Reports: No Symptoms HEENT: Reports: Other (Left eye pain) Respiratory: Reports: No Symptoms Cardiovascular: Reports: No Symptoms Endocrine: Reports: No Symptoms GI/Abdominal: Reports: No Symptoms : Reports: No Symptoms Musculoskeletal: Reports: No Symptoms Skin: Reports: No Symptoms ED EXAM GENERAL W FULL EYE - Physical Exam Exam: See Below Exam Limited By: No Limitations General Appearance: Alert, No Apparent Distress Eyelids: Bilateral: Normal Appearance Conjunctiva & Sclera: Left: Conjunctival Edema Cornea Exam: Left: Corneal Abrasion Extraocular Movements: Bilateral: Intact Pupils: Normal Accommodation Pupillary Reaction: Bilateral: Sluggish Anterior Chamber: Left: Normal Appearance Course - Vital Signs Last Recorded V/S: Last Vital Signs Temp 97.9 F 04/29/19 13:04 Pulse 75 04/29/19 13:04 Resp 16 04/29/19 13:04 BP 163/97 H 04/29/19 13:04 Pulse Ox 95 04/29/19 13:04 - Orders/Labs/Meds Meds: Medications Discontinued Medications Generic Name Dose Route Start Last Admin Trade Name Freq PRN Reason Stop Dose Admin Fluorescein Sodium 0.6 mg 04/29/19 14:33 04/29/19 14:45 Ful-Carolyn EYELF 04/29/19 14:34 0.6 mg ONETIME ONE Administration - Re-Assessments/Exams Free Text/Narrative Re-Assessment/Exam: 04/29/19 14:53 It appears the patient does not have a FB any more but he does have a corneal abrasion. I will give him cipro drops and some tramadol for pain. Departure - Departure Time of Disposition: 15:00 Disposition: Home, Self-Care 01 Condition: Good Clinical Impression: Corneal abrasion Qualifiers: Encounter type: initial encounter Laterality: left Qualified Code(s): S05.02XA - Injury of conjunctiva and corneal abrasion without foreign body, left eye, initial encounter - Discharge Information *PRESCRIPTION DRUG MONITORING PROGRAM REVIEWED*: No *COPY OF PRESCRIPTION DRUG MONITORING REPORT IN PATIENT VALERIE: No Prescriptions: Ciprofloxacin [Ciprofloxacin 0.3% Ophth Soln] 1 drop EYERT Q4HR #1 bottle traMADol [Ultram] 50 - 100 mg PO Q6H PRN #20 tab PRN Reason: Pain Referrals: Grover Vergara MD [Primary Care Provider] - 1 Week Additional Instructions: Use the cipro drops 1 drop every 4 hours while awake for a week. Take tylenol or motrin for pain. If that does not help, try the ultram. Follow up with an eye doctor in town if you are not better in a few days.
== END 2019-04-29 15:05 | disposition home or self-care (01) ==
LOC: JD.ED 12:54
DX: S05.02XA Injury of conjunctiva and corneal abrasion without foreign body, left eye, initial encounter (principal); I10 Essential (primary) hypertension; E11.9 Type 2 diabetes mellitus without complications; M10.9 Gout, unspecified; E78.00 Pure hypercholesterolemia, unspecified; Z79.899 Other long term (current) drug therapy; Z79.82 Long term (current) use of aspirin; Z79.84 Long term (current) use of oral hypoglycemic drugs; X58.XXXA Exposure to other specified factors, initial encounter
CPT/HCPCS: 99283

== ENCOUNTER 2023-07-21 05:50 | Day surgery (SDC) | payer MEDICARE, BC ==
[~2023-07-21 05:50] MED LIST changes: -Bisacodyl 5 MG Tab PO PRN; -Cyclobenzaprine 10 MG Tab PO PRN; -Ketorolac 15 MG/ML SDV IVPUSH PRN; -Lactated Ringers 1,000 ML IV SCH; -Lidocaine 1%/Sod Bicarbonate in NS 8.4% 1 ML Syringe IV PRN; -Magnesium Hydroxide 400 MG/5 ML Susp 30 ML Cup PO PRN; -Morphine 2 MG/ML Syringe IVPUSH PRN; -Naloxone 0.4 MG/ML SDV IVPUSH PRN; -Ondansetron 4 MG/2 ML SDV IVPUSH PRN; -Sennosides 8.6 MG Tab PO PRN; +Sodium Chloride 0.9% 10 ML Syringe FLUSH SCH; -diphenhydrAMINE 50 MG/ML SDV IVPUSH PRN
[2023-07-21] MEDS ORDERED: Acetaminophen 325 MG Tab PO SCH (06:00)
[2023-07-21] MEDS ORDERED: oxyCODONE ER 10 MG TAB.ER PO SCH (06:00)
[2023-07-21] MEDS ORDERED: Pregabalin 25 MG Cap PO SCH (06:00)
[2023-07-21] MEDS: Lactated Ringers 1,000 ML IV SCH ×2 (06:15→09:25)
[2023-07-21] MEDS ORDERED: Ropivacaine 0.5% 5 MG/ML 30 ML SDV ONE (06:18)
[2023-07-21] MEDS ORDERED: Dexmedetomidine 200 MCG/2 ML SDV ONE (06:18)
[2023-07-21] MEDS ORDERED: Propofol 200 MG/20 ML SDV ONE ×3 (06:19→07:56)
[2023-07-21] MEDS ORDERED: fentaNYL 100 MCG/2 ML SDV ONE ×2 (06:19→07:55)
[2023-07-21] MEDS ORDERED: Dexamethasone 4 MG/ML 5 ML MDV ONE (06:20)
[2023-07-21] MEDS ORDERED: Lidocaine 1% 4 ML ONE (06:20)
[2023-07-21] MEDS ORDERED: Midazolam 1 MG/ML 2 ML SDV ONE (06:20)
[2023-07-21] MEDS ORDERED: EPINEPHrine 1 MG/ML SDV ONE (07:00)
[2023-07-21] MEDS ORDERED: Ondansetron 4 MG/2 ML SDV ONE (07:27)
[2023-07-21] MEDS ORDERED: ceFAZolin 2 GM Vial ONE (07:28)
[2023-07-21] MEDS ORDERED: Ketamine 200 MG/20 ML MDV ONE (07:38)
[2023-07-21] MEDS: Tranexamic Acid 1,000 MG/10 ML Vial ONE ×2 (07:59→08:28)
[2023-07-21] MEDS: Vancomycin 1 GM SDV ONE ×2 (07:59→08:28)
[2023-07-21] MEDS ORDERED: fentaNYL 100 MCG/2 ML SDV IVPUSH PRN (08:11)
[2023-07-21] MEDS ORDERED: HYDROmorphone 0.5 MG/0.5 ML Syringe IVPUSH PRN (08:11)
[2023-07-21] MEDS ORDERED: oxyCODONE 5 MG Tab PO PRN (09:05)
[2023-07-21 10:53] VITALS: BP 138/90; PULSE 78
== END 2023-07-21 10:15 | disposition home or self-care (01) ==
LOC: JD.SDS 05:50
PROVIDERS: ATTEND Orthopaedic Surgery
DX: M75.101 Unspecified rotator cuff tear or rupture of right shoulder, not specified as traumatic (principal); E11.9 Type 2 diabetes mellitus without complications; I10 Essential (primary) hypertension; E78.00 Pure hypercholesterolemia, unspecified; G89.29 Other chronic pain; K21.9 Gastro-esophageal reflux disease without esophagitis; M10.9 Gout, unspecified; Z87.891 Personal history of nicotine dependence; Z79.84 Long term (current) use of oral hypoglycemic drugs; Z79.82 Long term (current) use of aspirin; Z79.899 Other long term (current) drug therapy
CPT/HCPCS: 01638; 64415; 76000; 76000-26; 82947; 97110-GP; 97161-GP; 99100; A9270-GY; C1713; C1769; C1776; J0171; J0690; J1100; J2250; J2405; J2704; J2795; J3010; J3370; J3490; J7030; J7120